=== PATIENT | female | born 1965 | race Caucasian/White ===

== ENCOUNTER 2016-11-09 18:11 | Emergency (ER) | payer BC ==
[~2016-11-09] VITALS: Ht 165.1 cm; Wt 74.1 kg
[~2016-11-09 18:11] MED LIST: ASPIR-LOW81 MG PO; CHOLESTYRAMINE378 GM; IRON PO; IRON325 M1 PO; LATANOPROST2.5 ML BOTH EYES; METFORMIN HCL500 MG PO; NAPROXEN500 MG PO; PRAVASTATIN SOD20 MG PO; PREVACID 24HR15 MG PO; ZOLPIDEM TARTRAT5 MG PO
[2016-11-09] MEDS ORDERED: HEARTBURN TREAT15 MG PO (20:18)
[2016-11-09] MEDS ORDERED: MOTRIN600 MG PO (20:19)
[2016-11-09] MEDS ORDERED: PROZAC20 MG PO (20:20)
[2016-11-09] MEDS ORDERED: ATARAX,VISTARIL25 MG PO (20:20)
[2016-11-09 20:50] LABS: HEMATOCRIT 41.7 % (36.0-46.0); MCH 27.8 PG (29.0-34.0); MCHC 33.8 G/DL (30.0-36.0); MCV 82.2 FL (83-99); MEAN PLAT.VOLUME 10.1 uM^3 (9.5-12.4); PLATELET COUNT 261 K/uL (156-360); RBC DIS.WIDTH-CV 13.7 % (11.8-14.6); RBC DIS.WIDTH-SD 40.4 % (39-53); RED BLOOD COUNT 5.07 M/uL (3.80-5.20); WHITE BLOOD COUNT 10.6 K/uL (4.1-10.2)
[2016-11-09 21:36] LABS: CHLORIDE 107 mEq/L (99-109); SODIUM 143 mEq/L (136-147)
[2016-11-09 21:39] LABS: GLUCOSE 96 mg/dL (70-99)
[2016-11-09 21:40] LABS: ANION GAP 13 MEQ/L (2-14)
[2016-11-09 21:41] LABS: TOTAL BILIRUBIN 0.7 mg/dL (0.0-1.0)
[2016-11-09 21:42] LABS: ALKALINE PHOSPHATASE 71 IU/L (3-129); GFR ESTIMATE (CALCULATED) > 59 mL/min/
[2016-11-09 21:43] LABS: UREA NITROGEN (BUN) 6 mg/dL (9-23)
[2016-11-10 00:31] VITALS: BP 121/61
== END 2016-11-10 00:31 | disposition home or self-care (01) ==
LOC: EXP 18:11 → EME 18:11 → EXP 11-10 00:31
PROVIDERS: Physician Assistant
DX: R51 Headache (principal); E11.9 Type 2 diabetes mellitus without complications; E78.5 Hyperlipidemia, unspecified; I10 Essential (primary) hypertension; Z79.84 Long term (current) use of oral hypoglycemic drugs
CPT/HCPCS: 70450; 80053; 85027; 99281; 99284; J1200; J1885; J2765; J7030

== ENCOUNTER 2016-11-16 16:13 | Emergency (ER) | payer BC ==
[~2016-11-16] VITALS: Ht 165.1 cm; Wt 73.0 kg
[~2016-11-16 16:13] MED LIST changes: +ATARAX,VISTARIL25 MG PO; +HEARTBURN TREAT15 MG PO; +MOTRIN600 MG PO; +PROZAC20 MG PO
[2016-11-16 16:58] LABS: HEMATOCRIT 44.9 % (36.0-46.0); MCH 27.8 PG (29.0-34.0); MCHC 33.4 G/DL (30.0-36.0); MCV 83.1 FL (83-99); PLATELET COUNT 279 K/uL (156-360); RBC DIS.WIDTH-CV 13.3 % (11.8-14.6); RBC DIS.WIDTH-SD 40.7 % (39-53)
[2016-11-16 17:01] LABS: WHITE BLOOD COUNT 7.4 K/uL (4.1-10.2)
[2016-11-16 17:05] LABS: CHLORIDE 107 mEq/L (99-109); SODIUM 143 mEq/L (136-147)
[2016-11-16 17:06] LABS: GLUCOSE 101 mg/dL (70-99)
[2016-11-16] MEDS ORDERED: PREVACID30 MG PO (17:06)
[2016-11-16 17:08] LABS: ANION GAP 13 MEQ/L (2-14)
[2016-11-16 17:10] LABS: GFR ESTIMATE (CALCULATED) > 59 mL/min/
[2016-11-16 17:11] LABS: UREA NITROGEN (BUN) 8 mg/dL (9-23)
[2016-11-16 17:17] LABS: TROP-I INTERPRETATION NEGATIVE; TROPONIN-I < 0.01 ng/mL (0.0-0.30)
[2016-11-16] MEDS ORDERED: ATARAX,VISTARIL25 MG PO (17:25)
[2016-11-16] MEDS ORDERED: PREDNISONE20 MG PO (17:25)
[2016-11-16 18:13] VITALS: BP 176/157
== END 2016-11-16 18:14 | disposition home or self-care (01) ==
LOC: EME 16:13
PROVIDERS: Emergency Medicine
DX: F41.9 Anxiety disorder, unspecified (principal); J45.909 Unspecified asthma, uncomplicated; E11.9 Type 2 diabetes mellitus without complications; E78.5 Hyperlipidemia, unspecified; I10 Essential (primary) hypertension; K21.9 Gastro-esophageal reflux disease without esophagitis
CPT/HCPCS: 70360; 80048; 84484; 85027; 93005; 99281; 99284; J1100; J2060

== ENCOUNTER 2016-11-23 10:37 | Emergency (ER) | payer BC, OTHER ==
[~2016-11-23] VITALS: Ht 165.1 cm; Wt 72.4 kg
[~2016-11-23 10:37] MED LIST changes: +PREDNISONE20 MG PO; +PREVACID30 MG PO
[2016-11-23 11:52] LABS: HEMATOCRIT 46.2 % (36.0-46.0); MCHC 33.8 G/DL (30.0-36.0); MCV 82.9 FL (83-99); MEAN PLAT.VOLUME 10.1 uM^3 (9.5-12.4); PLATELET COUNT 310 K/uL (156-360); RBC DIS.WIDTH-CV 13.4 % (11.8-14.6); RBC DIS.WIDTH-SD 40.6 % (39-53); RED BLOOD COUNT 5.57 M/uL (3.80-5.20); WHITE BLOOD COUNT 10.4 K/uL (4.1-10.2)
[2016-11-23 12:07] LABS: CHLORIDE 106 mEq/L (99-109); POTASSIUM 3.5 mEq/L (3.7-5.4); SODIUM 138 mEq/L (136-147)
[2016-11-23 12:09] LABS: GLUCOSE 137 mg/dL (70-99)
[2016-11-23 12:10] LABS: ANION GAP 10 MEQ/L (2-14)
[2016-11-23 12:12] LABS: SERUM ETHYL ALCOHOL < 10 mg/dL; TROP-I INTERPRETATION NEGATIVE; TROPONIN-I < 0.01 ng/mL (0.0-0.30)
[2016-11-23 12:13] LABS: GFR ESTIMATE (CALCULATED) > 59 mL/min/
[2016-11-23 12:14] LABS: UREA NITROGEN (BUN) 12 mg/dL (9-23)
[2016-11-23 15:09] LABS: D-DIMER ELISA 0.51 mg/L FEU (< 0.57)
[2016-11-23 15:38] LABS: TROP-I INTERPRETATION NEGATIVE; TROPONIN-I < 0.01 ng/mL (0.0-0.30)
[2016-11-23 15:50] LABS: AMPHETAMINE NEGATIVE (500 ng/mL); BARBITURATES NEGATIVE (200 ng/mL); BENZODIAZEPINES NEGATIVE (150 ng/mL); COCAINE NEGATIVE (150 ng/mL); INTERNAL CONTROLS VALID? YES; METHADONE NEGATIVE (200 ng/mL); METHAMPHETAMINE NEGATIVE (500 ng/mL); OPIATES (MORPHINE) NEGATIVE (100 ng/mL); OXYCODONE NEGATIVE (100 ng/mL); PHENCYCLIDINE NEGATIVE (25 ng/mL); PROPOXYPHENE NEGATIVE (300 ng/mL); THC CANNABINOIDS NEGATIVE (50 ng/mL); TRICYCLIC ANTIDEPRESSANTS NEGATIVE (300 ng/mL)
[2016-11-23 16:23] VITALS: BP 147/82
== END 2016-11-23 16:28 | disposition home or self-care (01) ==
LOC: EME 10:37
PROVIDERS: Emergency Medicine
DX: R07.89 Other chest pain (principal); F41.9 Anxiety disorder, unspecified; J45.909 Unspecified asthma, uncomplicated; E11.9 Type 2 diabetes mellitus without complications; E78.5 Hyperlipidemia, unspecified; I10 Essential (primary) hypertension; K21.9 Gastro-esophageal reflux disease without esophagitis
CPT/HCPCS: 71020; 80048; 84484; 85027; 85379; 93005; 99281; 99285; G0480

== ENCOUNTER 2017-01-11 17:05 | Emergency (ER) | payer BC ==
[~2017-01-11] VITALS: Ht 165.1 cm; Wt 70.0 kg
[2017-01-11 17:49] LABS: HEMATOCRIT 42.2 % (36.0-46.0); MCH 28.5 PG (29.0-34.0); MCHC 33.4 G/DL (30.0-36.0); MCV 85.4 FL (83-99); MEAN PLAT.VOLUME 9.9 uM^3 (9.5-12.4); PLATELET COUNT 373 K/uL (156-360); RBC DIS.WIDTH-CV 13.2 % (11.8-14.6); RBC DIS.WIDTH-SD 41.7 % (39-53); RED BLOOD COUNT 4.94 M/uL (3.80-5.20)
[2017-01-11 17:58] LABS: CHLORIDE 107 mEq/L (99-109); POTASSIUM 3.8 mEq/L (3.7-5.4); SODIUM 142 mEq/L (136-147)
[2017-01-11 18:00] LABS: GLUCOSE 102 mg/dL (70-99)
[2017-01-11 18:02] LABS: ANION GAP 10 MEQ/L (2-14)
[2017-01-11 18:04] LABS: GFR ESTIMATE (CALCULATED) > 59 mL/min/
[2017-01-11 18:05] LABS: UREA NITROGEN (BUN) 11 mg/dL (9-23)
[2017-01-11 18:10] LABS: TROP-I INTERPRETATION NEGATIVE; TROPONIN-I < 0.01 ng/mL (0.0-0.30)
[2017-01-11 18:12] LABS: QUANTITATIVE HCG < 4.0 MIU/ML
[2017-01-11 18:44] VITALS: BP 136/84
== END 2017-01-11 18:44 | disposition home or self-care (01) ==
LOC: EME 17:05
PROVIDERS: Emergency Medicine
DX: R07.89 Other chest pain (principal); E11.9 Type 2 diabetes mellitus without complications; Z79.84 Long term (current) use of oral hypoglycemic drugs; I10 Essential (primary) hypertension; E78.5 Hyperlipidemia, unspecified; K21.9 Gastro-esophageal reflux disease without esophagitis; J45.909 Unspecified asthma, uncomplicated; I45.10 Unspecified right bundle-branch block; F41.9 Anxiety disorder, unspecified; Z87.891 Personal history of nicotine dependence
CPT/HCPCS: 71010; 80048; 84484; 84702; 85027; 93005; 99281; 99284

== ENCOUNTER 2017-04-08 18:00 | Emergency (ER) | payer BC ==
[~2017-04-08] VITALS: Ht 165.1 cm; Wt 73.8 kg
[2017-04-08] MEDS ORDERED: PREDNISONE20 MG PO (20:46)
[2017-04-08] MEDS ORDERED: VALIUM5 MG PO (20:46)
[2017-04-08] MEDS ORDERED: INDOCIN50 MG PO (20:46)
[2017-04-08 21:00] VITALS: BP 149/77
== END 2017-04-08 21:00 | disposition home or self-care (01) ==
LOC: EME 18:00
DX: M75.32 Calcific tendinitis of left shoulder (principal); M62.838 Other muscle spasm; M50.322 Other cervical disc degeneration at C5-C6 level; E11.9 Type 2 diabetes mellitus without complications; Z79.84 Long term (current) use of oral hypoglycemic drugs
CPT/HCPCS: 72040; 73030; 99281; 99284; J1885; J7512

== ENCOUNTER 2018-03-20 22:49 | Emergency (ER) | payer OTHER ==
[~2018-03-20] VITALS: Ht 165.1 cm; Wt 78.5 kg
[~2018-03-20 22:49] MED LIST changes: +INDOCIN50 MG PO; +VALIUM5 MG PO
[2018-03-20 23:20] LABS: HEMATOCRIT 39.9 % (36.0-46.0); HEMOGLOBIN 13.2 G/DL (11.9-15.5); MCH 27.7 PG (29.0-34.0); MCHC 33.1 G/DL (30.0-36.0); MCV 83.6 FL (83-99); PLATELET COUNT 309 K/uL (156-360); RBC DIS.WIDTH-CV 12.7 % (11.8-14.6); RBC DIS.WIDTH-SD 38.5 % (39-53); RED BLOOD COUNT 4.77 M/uL (3.80-5.20); WHITE BLOOD COUNT 9.8 K/uL (4.1-10.2)
[2018-03-20 23:30] LABS: CHLORIDE 105 mEq/L (99-109); POTASSIUM 3.8 mEq/L (3.7-5.4); SODIUM 143 mEq/L (136-147)
[2018-03-20 23:32] LABS: GLUCOSE 122 mg/dL (70-99)
[2018-03-20 23:36] LABS: CREATININE 0.8 mg/dL (0.6-1.3); GFR ESTIMATE (CALCULATED) > 59 mL/min/
[2018-03-20 23:37] LABS: UREA NITROGEN (BUN) 10 mg/dL (9-23)
[2018-03-20 23:44] LABS: TROP-I INTERPRETATION NEGATIVE; TROPONIN-I < 0.01 ng/mL (0.0-0.30)
[2018-03-21] MEDS ORDERED: HEARTBURN RELIE20 MG PO (02:19)
[2018-03-21] MEDS ORDERED: MAALOX ADVANCE355 ML PO (02:19)
[2018-03-21 03:22] VITALS: BP 115/78
== END 2018-03-21 03:23 | disposition home or self-care (01) ==
LOC: EME 22:49
DX: K21.9 Gastro-esophageal reflux disease without esophagitis (principal); I10 Essential (primary) hypertension; E11.9 Type 2 diabetes mellitus without complications; E78.5 Hyperlipidemia, unspecified; J45.909 Unspecified asthma, uncomplicated; F41.9 Anxiety disorder, unspecified; Z79.84 Long term (current) use of oral hypoglycemic drugs
CPT/HCPCS: 71046; 80048; 84484; 85027; 93005; 99281; 99284